=== PATIENT | male | born 1940 | race Caucasian/White ===

== ENCOUNTER 2023-05-22 17:21 | Emergency (ER) | payer MEDICARE, OTHER, SELFPAY ==
[2023-05-22 17:28] VITALS: BP 141/71
--- NOTE | 2023-05-22 19:11 | ED.MUSCINJ ---
HPI-Injury
General
Chief Complaint: Fall
Source: patient
Exam Limitations: none
Time Seen by Provider: 05/22/23 19:03
Travel History
Have you had any contact with someone who has COVID-19?: No
Do you have any symptoms of coronavirus? Fever > 100 degrees, chills, cough, shortness of breath, sore throat, loss of taste or smell, muscle aches, or headache?: No
History of Present Illness-Injury
Initial Injury comments:
82-year-old male presents complaining of right shoulder pain after trip and fall today in his house. He tripped over the ottoman and landed on his right shoulder. Did not hit his head. Denies headache or neck pain. He has difficulty elevating
his right shoulder. He is left-hand dominant. No other complaints
Phy Exam
Physical Exam
Physical Exam:
General: Well-appearing male no acute respiratory distress
Musculoskeletal exam: The spine is nontender. He is slightly tender over the lateral aspect of the shoulder he has increased pain with active forward elevation and abduction. Passive range of motion is decent. He has increased pain with rotator
cuff strength testing. The right elbow is nontender
Vascular: 2+ radial pulse right wrist
Neurologic: Alert and oriented normal gait conversing appropriately
Injury Course
Orders/Labs/Results
Orders:
Orders
05/22/23 17:31
CR Shoulder, Trauma - Right Urgent
Comment:
Reason For Exam: fall, shoulder pain
05/22/23 19:11
Sling Right-Treatment ONCE
MDM/Problems Addressed
Differential Diagnosis Includes:
Mechanical fall with right shoulder pain. Possible fracture versus strain versus dislocation.
I have personally visualized x-rays of the right shoulder which are negative for acute bony abnormality. Suspect underlying strain. Patiently placed in a sling. Will be advised follow-up with orthopedics for further evaluation
*Critical Care Note
Total Time (30-74mins, 75-104mins- exclusive of procedures): Not Applicable
ED Attending Note
-
Portions of this chart may have been created with voice recognition software.� Occasional wrong word or��sound alike� substitutions may have occurred due to the inherent limitations of voice recognition software.
Discharge Plan
Departure
Patient Disposition: Home (Routine Discharge)
Date of Disposition: 05/22/23
Time of Disposition: 19:13
Patient with high blood pressure during this ER visit?: No
Discharge Problem:
Right shoulder strain
Instructions: Preventing falls in adults
Prescriptions:
No Action
prednisone 20 mg tablet
40 mg PO DAILY 5 Days Qty: 10 0RF
Referrals:
Osmani Stewart MD [Active] -
Activity Restrictions/Additional Instructions:
Use sling for support. Use Tylenol or ibuprofen for pain. Follow-up with orthopedics for further evaluation
Interventions
Interventions:
*General Assessment Last Done: 05/22/23 17:30
*ED COVID-19 Vaccine History Last Done: 05/22/23 17:29
Discharge Date and Time
Print Language: [place]
== END 2023-05-22 19:27 | disposition home or self-care (01) ==
LOC: EMR 17:21
PROVIDERS: EMERGENCY PHYSICIAN Emergency Medicine; FAMILY PHYSICIAN Family Medicine
DX: S46.911A Strain of unspecified muscle, fascia and tendon at shoulder and upper arm level, right arm, initial encounter (principal); W01.0XXA Fall on same level from slipping, tripping and stumbling without subsequent striking against object, initial encounter
CPT/HCPCS: 99283; 73030

== ENCOUNTER → 2023-06-26 13:14 | Outpatient (REF) | payer MEDICARE, OTHER, SELFPAY | LOC: MRI 3T 13:14 | PROVIDERS: ATTENDING PHYSICIAN Orthopaedic Surgery Hand Surgery; FAMILY PHYSICIAN Family Medicine | DX: M25.511 Pain in right shoulder (principal) | CPT/HCPCS: 73221 ==

== ENCOUNTER → 2023-07-08 13:17 | Outpatient (REF) | payer MEDICARE, OTHER, SELFPAY ==
[2023-07-08 14:05] LABS: Hematocrit 37.2 % (39.0-52.0); Hemoglobin 13.2 g/dL (13.0-18.0); Mean Corp Hgb Conc. 35.5 g/dL (33.0-37.0); Mean Corpuscular Hgb 36.5 pg (27.0-31.0); Mean Corpuscular Volume 102.8 fL (80.0-94.0); Mean Platelet Volume 9.9 fL (7.4-10.4); Platelet Count 391 10^3/uL (130-400); Red Blood Cell Count 3.62 10^6/uL (4.70-6.10); Red Cell Dist. Width 13.2 % (11.5-14.5); White Blood Cell Count 6.7 10^3/uL (4.8-10.8)
[2023-07-08 14:31] LABS: Blood Urea Nitrogen 26 mg/dl (9-20); Calcium 10.2 mg/dl (8.4-10.2); Carbon Dioxide 22 mmol/L (22-30); Chloride 109 mmol/L (98-107); Glucose 153 mg/dl (70-99); Potassium 4.3 mmol/L (3.5-5.1); Sodium 141 mmol/L (135-145); eGFR 55.19
== END ==
LOC: SDSPAT 13:17
PROVIDERS: ATTENDING PHYSICIAN Orthopaedic Surgery Hand Surgery; FAMILY PHYSICIAN Family Medicine
DX: Z01.818 Encounter for other preprocedural examination (principal)
CPT/HCPCS: 36415; 80048; 85027; 93005

== ENCOUNTER 2023-07-13 06:35 | Day surgery (SDC) | payer MEDICARE, OTHER, SELFPAY ==
[2023-07-08 13:32] VITALS: BMI 27.4
[2023-07-13] VITALS (11 sets, daily range): BP systolic 129–180; BP diastolic 62–81; BMI 27.4
[2023-07-13] MEDS: TYLENOL 1000 MG PO (08:11)
[2023-07-13] MEDS: CELEBREX 200 MG PO (08:11)
[2023-07-13 08:19] LABS: Glucose - Point of Care 162 mg/dl (70-99)
[2023-07-13] MEDS: NORMOSOL-R 1000 IV (08:19)
[2023-07-13 11:16] LABS: Glucose - Point of Care 174 mg/dl (70-99)
== END 2023-07-13 13:33 | disposition home or self-care (01) ==
LOC: SDS 06:35
PROVIDERS: ATTENDING PHYSICIAN Orthopaedic Surgery Hand Surgery
DX: S46.011A Strain of muscle(s) and tendon(s) of the rotator cuff of right shoulder, initial encounter (principal); S46.122A Laceration of muscle, fascia and tendon of long head of biceps, left arm, initial encounter; X58.XXXA Exposure to other specified factors, initial encounter; M75.41 Impingement syndrome of right shoulder
CPT/HCPCS: 29827; 29826; 82962

== ENCOUNTER → 2023-08-11 11:07 | Outpatient (REF) | payer MEDICARE, OTHER, SELFPAY ==
[2023-08-11 16:05] LABS: % Basophils 0.9 % (0-2); % Immature Granulocytes 0.3 % (0-0.5); % Lymphocytes 33.3 % (20.5-51.1); % Monocytes 11.9 % (1.7-9.3); % Neutrophils 49.6 % (42.2-75.2); Absolute Basophils 0.1 10^3/uL (0-0.2); Absolute Eosinophils 0.2 10^3/uL (0-0.7); Absolute Lymphocytes 1.9 10^3/uL (1.2-3.4); Absolute Monocytes 0.7 10^3/uL (0.1-0.6); Absolute Neutrophils 2.8 10^3/uL (1.4-6.5); Hemoglobin 12.4 g/dL (13.0-18.0); Mean Corp Hgb Conc. 34.4 g/dL (33.0-37.0); Mean Corpuscular Hgb 36.4 pg (27.0-31.0); Mean Corpuscular Volume 105.6 fL (80.0-94.0); Mean Platelet Volume 10.1 fL (7.4-10.4); Nucleated Red Blood Cells % 0 % (-); Platelet Count 447 10^3/uL (130-400); Red Blood Cell Count 3.41 10^6/uL (4.70-6.10); Red Cell Dist. Width 13.1 % (11.5-14.5); White Blood Cell Count 5.7 10^3/uL (4.8-10.8)
[2023-08-11 16:08] LABS: Urine Albumin Trace (Neg - Trace); Urine Bilirubin Negative (Negative); Urine Character Clear (Clear); Urine Color Yellow; Urine Glucose Negative (Negative); Urine Ketone Negative (Negative); Urine Leukocyte Trace (Negative); Urine Nitrite Negative (Negative); Urine Occult Blood 4+ (Negative); Urine Urobilinogen Negative (Neg - 1+)
[2023-08-11 16:12] LABS: ALT (SGPT) 19 U/L (0-50); AST (SGOT) 25 U/L (17-59); Alkaline Phosphatase 83 U/L (38-126); Blood Urea Nitrogen 24 mg/dl (9-20); Calcium 10.1 mg/dl (8.4-10.2); Carbon Dioxide 27 mmol/L (22-30); Chloride 108 mmol/L (98-107); Glucose 153 mg/dl (70-99); HDL Cholesterol 36 mg/dl; LDL Cholesterol, Calculated 51 mg/dl; Potassium 4.1 mmol/L (3.5-5.1); Sodium 141 mmol/L (135-145); Total Bilirubin 0.6 mg/dl (0.2-1.3); Total Cholesterol 110 mg/dl (50-199); Total Protein 6.5 g/dl (6.3-8.2); Triglyceride 118 mg/dl (10-149); Very Low Density Lipoprotein 23 mg/dl (0-30); eGFR > 60.00
[2023-08-11 16:14] LABS: Urine Mucus Few
[2023-08-11 16:15] LABS: Urine Bacteria Few (Negative); Urine Red Blood Cell 30-40 /HPF (0-2); Urine White Cell 0-2 /HPF (0-5)
[2023-08-11 16:36] LABS: Microalbumin, Random Urine 2.1 mg/dl (0.6-1.7); Microalbumin/creatinine Ratio 11.2 mg/g
[2023-08-11 16:43] LABS: PSA, Total - Screen 1.32 ng/ml (0.0-4.0); TSH Reflex To Free T4 2.19 uIU/ml (0.47-4.68)
[2023-08-12 08:52] LABS: Glycohemoglobin (HgbA1c) 6.8 % (4.0-5.6)
== END ==
LOC: HWLAB 11:07
PROVIDERS: ATTENDING PHYSICIAN Family Medicine
DX: Z72.0 Tobacco use (principal); I10 Essential (primary) hypertension; E78.5 Hyperlipidemia, unspecified; J44.9 Chronic obstructive pulmonary disease, unspecified; D47.3 Essential (hemorrhagic) thrombocythemia; E11.9 Type 2 diabetes mellitus without complications; Z12.5 Encounter for screening for malignant neoplasm of prostate
CPT/HCPCS: 36415; 80053; 80061; 81003; 81015; 82043; 82570; 83036; 84443; 85025; G0103

== ENCOUNTER → 2023-12-07 12:44 | Outpatient (REF) | payer MEDICARE, OTHER, SELFPAY ==
[2023-12-07 17:53] LABS: ALT (SGPT) 21 U/L (0-50); AST (SGOT) 27 U/L (17-59); Albumin 4.2 g/dl (3.5-5.0); Alkaline Phosphatase 64 U/L (38-126); Blood Urea Nitrogen 18 mg/dl (9-20); Carbon Dioxide 21 mmol/L (22-30); Chloride 108 mmol/L (98-107); Glucose 152 mg/dl (70-99); HDL Cholesterol 43 mg/dl; LDL Cholesterol, Calculated 46 mg/dl; Potassium 4.9 mmol/L (3.5-5.1); Sodium 142 mmol/L (135-145); Total Bilirubin 0.5 mg/dl (0.2-1.3); Total Cholesterol 111 mg/dl (50-199); Total Protein 6.6 g/dl (6.3-8.2); Triglyceride 110 mg/dl (10-149); Very Low Density Lipoprotein 22 mg/dl (0-30); eGFR > 60.00
[2023-12-07 18:10] LABS: % Basophils 0.8 % (0-2); % Eosinophils 3.1 % (0-6); % Immature Granulocytes 0.3 % (0-0.5); % Lymphocytes 25.4 % (20.5-51.1); % Monocytes 10.6 % (1.7-9.3); % Neutrophils 59.8 % (42.2-75.2); Absolute Basophils 0.1 10^3/uL (0-0.2); Absolute Eosinophils 0.2 10^3/uL (0-0.7); Absolute Lymphocytes 1.8 10^3/uL (1.2-3.4); Absolute Monocytes 0.8 10^3/uL (0.1-0.6); Absolute Neutrophils 4.3 10^3/uL (1.4-6.5); Hematocrit 38.1 % (39.0-52.0); Hemoglobin 13.2 g/dL (13.0-18.0); Mean Corp Hgb Conc. 34.6 g/dL (33.0-37.0); Mean Corpuscular Hgb 35.8 pg (27.0-31.0); Mean Corpuscular Volume 103.3 fL (80.0-94.0); Mean Platelet Volume 10.4 fL (7.4-10.4); Nucleated Red Blood Cells % 0 % (-); Platelet Count 451 10^3/uL (130-400); Red Blood Cell Count 3.69 10^6/uL (4.70-6.10); Red Cell Dist. Width 12.9 % (11.5-14.5); White Blood Cell Count 7.1 10^3/uL (4.8-10.8)
[2023-12-08 10:56] LABS: Glycohemoglobin (HgbA1c) 6.7 % (4.0-5.6)
== END ==
LOC: HWLAB 12:44
PROVIDERS: ATTENDING PHYSICIAN Family Medicine
DX: Z72.0 Tobacco use (principal); I10 Essential (primary) hypertension; E78.5 Hyperlipidemia, unspecified; E11.69 Type 2 diabetes mellitus with other specified complication; R80.9 Proteinuria, unspecified
CPT/HCPCS: 36415; 80053; 80061; 83036; 85025

== ENCOUNTER → 2023-12-10 10:45 | Outpatient (REF) | payer MEDICARE, OTHER, SELFPAY | LOC: HWRAD 10:45 | PROVIDERS: ATTENDING PHYSICIAN Family Medicine | DX: Z72.0 Tobacco use (principal); J44.9 Chronic obstructive pulmonary disease, unspecified; I65.23 Occlusion and stenosis of bilateral carotid arteries; Z00.01 Encounter for general adult medical examination with abnormal findings | CPT/HCPCS: 76770; 93880 ==

== ENCOUNTER → 2023-12-15 11:33 | Outpatient (REF) | payer MEDICARE, OTHER, SELFPAY ==
[2023-12-15 17:27] LABS: Urine Albumin Trace (Neg - Trace); Urine Bilirubin Negative (Negative); Urine Character Clear (Clear); Urine Color Yellow; Urine Glucose Negative (Negative); Urine Ketone Negative (Negative); Urine Leukocyte Negative (Negative); Urine Nitrite Negative (Negative); Urine Occult Blood Negative (Negative); Urine Urobilinogen Negative (Neg - 1+)
== END ==
LOC: CLAB 11:33
PROVIDERS: ATTENDING PHYSICIAN Urology
DX: R31.29 Other microscopic hematuria (principal)
CPT/HCPCS: 81003; 88112

== ENCOUNTER → 2024-05-05 10:59 | Outpatient (REF) | payer MEDICARE, OTHER, SELFPAY ==
[2024-05-05 15:33] LABS: % Basophils 0.6 % (0-2); % Eosinophils 2.8 % (0-6); % Immature Granulocytes 0.3 % (0-0.5); % Lymphocytes 26.5 % (20.5-51.1); % Monocytes 10.9 % (1.7-9.3); % Neutrophils 58.9 % (42.2-75.2); ALT (SGPT) 23 U/L (0-50); AST (SGOT) 25 U/L (17-59); Absolute Eosinophils 0.2 10^3/uL (0-0.7); Absolute Lymphocytes 1.8 10^3/uL (1.2-3.4); Absolute Monocytes 0.8 10^3/uL (0.1-0.6); Albumin 3.6 g/dl (3.5-5.0); Alkaline Phosphatase 79 U/L (38-126); Blood Urea Nitrogen 23 mg/dl (9-20); Calcium 10.1 mg/dl (8.4-10.2); Carbon Dioxide 28 mmol/L (22-30); Chloride 108 mmol/L (98-107); Glucose 167 mg/dl (70-99); HDL Cholesterol 38 mg/dl; Hematocrit 40.6 % (39.0-52.0); Hemoglobin 13.5 g/dL (13.0-18.0); LDL Cholesterol, Calculated 43 mg/dl; Mean Corp Hgb Conc. 33.3 g/dL (33.0-37.0); Mean Corpuscular Hgb 35.7 pg (27.0-31.0); Mean Corpuscular Volume 107.4 fL (80.0-94.0); Mean Platelet Volume 9.9 fL (7.4-10.4); Nucleated Red Blood Cells % 0 % (-); Platelet Count 480 10^3/uL (130-400); Potassium 4.5 mmol/L (3.5-5.1); Red Blood Cell Count 3.78 10^6/uL (4.70-6.10); Red Cell Dist. Width 12.9 % (11.5-14.5); Sodium 142 mmol/L (135-145); Total Bilirubin 0.5 mg/dl (0.2-1.3); Total Cholesterol 107 mg/dl (50-199); Total Protein 6.2 g/dl (6.3-8.2); Triglyceride 131 mg/dl (10-149); Very Low Density Lipoprotein 26 mg/dl (0-30); White Blood Cell Count 6.9 10^3/uL (4.8-10.8); eGFR > 60.00
[2024-05-05 15:50] LABS: Urine Albumin 1+ (Neg - Trace); Urine Bilirubin Negative (Negative); Urine Character Clear (Clear); Urine Color Yellow; Urine Glucose Negative (Negative); Urine Ketone Negative (Negative); Urine Leukocyte Negative (Negative); Urine Nitrite Negative (Negative); Urine Occult Blood Negative (Negative); Urine Urobilinogen Negative (Neg - 1+)
[2024-05-05 16:05] LABS: PSA, Total - Screen 1.28 ng/ml (0.0-4.0); TSH Reflex To Free T4 2.09 uIU/ml (0.47-4.68)
[2024-05-05 16:08] LABS: Urine Red Blood Cell 0-2 /HPF (0-2); Urine White Cell 0-2 /HPF (0-5)
[2024-05-05 16:13] LABS: Microalbumin, Random Urine 2.1 mg/dl (0.6-1.7); Microalbumin/creatinine Ratio 11.8 mg/g
[2024-05-06 13:42] LABS: Glycohemoglobin (HgbA1c) 6.9 % (4.0-5.6)
== END ==
LOC: HWLAB 10:59
PROVIDERS: ATTENDING PHYSICIAN Family Medicine
DX: Z00.01 Encounter for general adult medical examination with abnormal findings (principal); Z72.0 Tobacco use; I10 Essential (primary) hypertension; E78.5 Hyperlipidemia, unspecified; J44.9 Chronic obstructive pulmonary disease, unspecified; D47.3 Essential (hemorrhagic) thrombocythemia; H91.93 Unspecified hearing loss, bilateral; E11.69 Type 2 diabetes mellitus with other specified complication; Z12.5 Encounter for screening for malignant neoplasm of prostate
CPT/HCPCS: 36415; 80053; 80061; 81003; 81015; 82043; 82570; 83036; 84443; 85025; G0103

== ENCOUNTER → 2024-05-16 14:58 | Outpatient (REF) | payer MEDICARE, OTHER, SELFPAY | LOC: HWRAD 14:58 | PROVIDERS: ATTENDING PHYSICIAN Family Medicine | DX: J44.9 Chronic obstructive pulmonary disease, unspecified (principal); R06.02 Shortness of breath | CPT/HCPCS: 71250 ==

== ENCOUNTER → 2024-10-31 13:17 | Outpatient (REF) | payer MEDICARE, OTHER, SELFPAY ==
[2024-10-31 15:35] LABS: Hematocrit 40.2 % (39.0-52.0); Hemoglobin 13.8 g/dL (13.0-18.0); Mean Corp Hgb Conc. 34.3 g/dL (33.0-37.0); Mean Corpuscular Volume 106.1 fL (80.0-94.0); Nucleated Red Blood Cells % 0 % (-); Platelet Count 436 10^3/uL (130-400); Red Cell Dist. Width 12.8 % (11.5-14.5)
[2024-10-31 15:42] LABS: ALT (SGPT) 21 U/L (0-50); AST (SGOT) 25 U/L (17-59); Albumin 4.3 g/dl (3.5-5.0); Alkaline Phosphatase 66 U/L (38-126); Blood Urea Nitrogen 22 mg/dl (9-20); Calcium 10.1 mg/dl (8.4-10.2); Carbon Dioxide 25 mmol/L (22-30); Chloride 108 mmol/L (98-107); Glucose 155 mg/dl (70-99); HDL Cholesterol 42 mg/dl; LDL Cholesterol, Calculated 52 mg/dl; Potassium 4.6 mmol/L (3.5-5.1); Sodium 139 mmol/L (135-145); Total Protein 6.9 g/dl (6.3-8.2); Very Low Density Lipoprotein 25 mg/dl (0-30); eGFR > 60.00
[2024-10-31 16:03] LABS: Urine Character Clear (Clear)
[2024-10-31 17:41] LABS: Urine White Cell 0-2 /HPF (0-5)
[2024-11-01 08:16] LABS: Glycohemoglobin (HgbA1c) 6.9 % (4.0-5.6)
== END ==
LOC: HWLAB 13:17
PROVIDERS: ATTENDING PHYSICIAN Family Medicine
DX: E11.638 Type 2 diabetes mellitus with other oral complications (principal); E78.2 Mixed hyperlipidemia; D64.9 Anemia, unspecified
CPT/HCPCS: 36415; 80053; 80061; 81003; 81015; 83036; 85025